=== PATIENT | female | born 1960 | race Caucasian/White ===

== ENCOUNTER → 2018-08-29 | Outpatient (CLI) | payer MEDICARE, OTHER ==
--- NOTE | 2018-08-29 18:11 | US ---
EXAMINATION TYPE: US venous doppler duplex LE RT DATE OF EXAM: 08/29/2018 5:51 PM COMPARISON: NONE CLINICAL HISTORY: R60.0 Localized edema. Right leg pain and swelling x 1 week SIDE PERFORMED: Right TECHNIQUE: The lower extremity deep venous system is examined utilizing real time linear array sonog manny with graded compression, doppler sonography and color-flow sonography. VESSELS IMAGED: External Iliac Vein (EIV) Common Femoral Vein Deep Femoral Vein Greater Saphenous Vein * Femoral Vein Popliteal Vein Small Saphenous Vein * Proximal Calf Veins (* superficial vessels) Right Leg: Appears negative for DVT IMPRESSION: No evidence of deep venous thrombosis in the right leg.
== END | disposition home or self-care (01) ==
LOC: RADUSMAIN 17:22
PROVIDERS: ATTEND Physician Assistant
DX: R60.0 Localized edema (principal)

== ENCOUNTER → 2019-04-26 | Outpatient (CLI) | payer MEDICARE, OTHER ==
--- NOTE | 2019-04-26 10:47 | CT ---
EXAMINATION TYPE: CT brain wo/w con DATE OF EXAM: 04/26/2019 COMPARISON: 11/02/1912 HISTORY: frequent falls CT DLP: 2301.00 mGycm Automated exposure control for dose reduction was used. CONTRAST: CT scan of the head is performed with IV Contrast, patient injected with 100 mL of Isovue 300. FINDINGS: There is no abnormal enhancing mass or midline shift identified. There is [id number] generalize d degenerative change involving the cerebellum. Dolichoectasia of the vertebrobasilar system noted. Findings are still suspicious for small aneurysm near the basilar tip measuring 4.5 mm No midline shift or mass effect. No enhancing masses. Sinuses are clear. No orbital flattening. Craniocervical junction is maintained on the sagittal image no acute hemorrhag e.. IMPRESSION: 1. There is diffuse cerebellar atrophy correlate clinically. No enhancing mass or midline shift. 2. 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 MRA [place] of [place] lis is recommended to exclude a small aneurysm measuring 4 mm extending from the basilar tip. Correla te with axial image 27 postcontrast images.
== END | disposition home or self-care (01) ==
LOC: RADCTMAIN 07:28
PROVIDERS: ATTEND Family Medicine
DX: G45.0 Vertebro-basilar artery syndrome (principal)
CPT/HCPCS: 70470; Q9967

== ENCOUNTER → 2019-07-23 | Outpatient (CLI) | payer MEDICARE, OTHER ==
--- NOTE | 2019-07-23 09:36 | MM ---
Reason for exam: screening (asymptomatic). Baseline mammogram. History: Patient is postmenopausal and is nulliparous. Family history of breast cancer in sister at age 45 and breast cancer in sister at age 35. Physical Findings: Nurse did not find any significant physical abnormalities on exam. MG 3D Screening Mammo W/Cad Bilateral CC and MLO view(s) were taken. Focal asymmetry left upper outer quadrant. These results were verbally communicated with the patient and result sheet given to the patient on 07/23/19. ASSESSMENT: Benign, BI-RAD 2 RECOMMENDATION: Routine screening mammogram of both breasts in 1 year.
== END | disposition home or self-care (01) ==
LOC: RADMAMWWP 07:13
PROVIDERS: ATTEND Family Medicine
DX: Z12.31 Encounter for screening mammogram for malignant neoplasm of breast (principal)
CPT/HCPCS: 77063; 77067

== ENCOUNTER 2020-09-01 09:27 | Day surgery (SDC) | payer MEDICARE, OTHER ==
[2020-08-31 08:49] VITALS: BMI 46.7
--- NOTE | 2020-09-01 08:34 | P.GSHP ---
History of Present Illness H&P Date: 09/01/20 CHIEF COMPLAINT: Colon screen HISTORY OF PRESENT ILLNESS: The patient is a 60-year-old female who presents for colon screen. Lower endoscopy was offered for further evaluation and management. PAST MEDICAL HISTORY: Please see list. PAST SURGICAL HISTORY: Please see list. MEDICATIONS: Please see list. ALLERGIES: Please see list. SOCIAL HISTORY: No illicit drug use FAMILY HISTORY: No reports of Crohn disease or ulcerative colitis. REVIEW OF ORGAN SYSTEMS: CONSTITUTIONAL: No reports of fevers or chills. PHYSICAL EXAM: VITAL SIGNS: Stable GENERAL: Well-developed pleasant in no acute distress. HEENT: No scleral icterus. Extraocular movements grossly intact. Moist buccal mucosa. NECK: Supple without lymphadenopathy. CHEST: Unlabored respirations. Equal bilateral excursions. CARDIOVASCULAR: Regular rate and rhythm. Distal 2+ pulses. ABDOMEN: Soft, nontender, nondistended. MUSCULOSKELETAL: No clubbing, cyanosis, or edema. ASSESSMENT: 1. Colon screen. PLAN: 1. Recommend proceeding with a lower endoscopy Past Medical History Past Medical History: Asthma, Heart Failure, GERD/Reflux, Hyperlipidemia, Hypertension, Seizure Disorder Additional Past Medical History / Comment(s): frequent diarrhea, seasonal allergies, last seizure in teens, mentally handicapped, signs own consents, History of Any Multi-Drug Resistant Organisms: None Reported Past Surgical History: Tubal Ligation Additional Past Surgical History / Comment(s): eye sx, colonoscopy Past Anesthesia/Blood Transfusion Reactions: Family History of Problems w/ Anesthesia Additional Past Anesthesia/Blood Transfusion Reaction / Comment(s): family hx of PONV Smoking Status: Never smoker - Past Family History Mother Family Medical History: Cancer Additional Family Medical History / Comment(s): colon ca Father Family Medical History: Cancer Additional Family Medical History / Comment(s): lung, melanoma Sister(s) Family Medical History: Cancer Additional Family Medical History / Comment(s): breast x2 sisters, colon Medications and Allergies Home Medications Medication Instructions Recorded Confirmed Type Albuterol Inhaler [Ventolin Hfa 2 puff INHALATION RT-QID PRN 08/31/20 08/31/20 History Inhaler] Cetirizine HCl [Zyrtec] 10 mg PO DAILY 08/31/20 08/31/20 History Ezetimibe [Zetia] 10 mg PO DAILY 08/31/20 08/31/20 History Furosemide [Lasix] 20 mg PO DAILY 08/31/20 08/31/20 History Levothyroxine Sodium [Tirosint] 50 mcg PO QAM 08/31/20 08/31/20 History OLANZapine [ZyPREXA] 10 mg PO HS 08/31/20 08/31/20 History Omeprazole 20 mg PO DAILY 08/31/20 08/31/20 History PHENobarbitaL [Luminal] 64.8 mg PO BID 08/31/20 08/31/20 History Phenytoin Sodium Extended 100 mg PO TID 08/31/20 08/31/20 History [Dilantin] Simvastatin 40 mg PO DAILY 08/31/20 08/31/20 History Valsartan/Hydrochlorothiazide 1 each PO QAM 08/31/20 08/31/20 History [Valsartan-Hctz 320-25 mg Tab] Allergies Allergy/AdvReac Type Severity Reaction Status Date / Time ?seizure med Allergy Unknown Uncoded 08/31/20 08:38
[~2020-09-01 09:27] MED LIST: LACTATED RINGERS 1,000 ML IV SCH; LIDOCAINE 1% (10MG/ML) FOR IV START INTRADERMA PRN
[2020-09-01] MEDS ORDERED: LACTATED RINGERS 1,000 ML IV ONE ×3 (09:45)
[2020-09-01 10:13] VITALS: TEMP 97.5
[2020-09-01] MEDS ORDERED: PROPOFOL 10 MG/ML 20 ML VIAL IV ONE (10:21)
--- NOTE | 2020-09-01 10:50 | P.PCN ---
Date of Procedure: 09/01/20 Description of Procedure: PREOPERATIVE DIAGNOSIS: Colonoscopy screening POSTOPERATIVE DIAGNOSIS: Colonoscopy screening Internal/external hemorrhoids, grade 3 Ascending colitis Transverse colon polyp OPERATION: Colonoscopy to the ileocecal valve and appendiceal orifice, cecum Colonoscopy with cold forceps biopsy SURGEON: Kim Villa MD. ANESTHESIA: MAC. INDICATIONS: The patient is an 60-year-old female who presents for first colonoscopy. Benefits and risks were described and informed consent was obtained. DESCRIPTION OF PROCEDURE: The patient had undergone MiraLAX Gatorade prep The patient had been brought into the operating room and laid in the left lateral decubitus position. After adequate intravenous sedation, the rectum was examined with 2% lidocaine jelly. External hemorrhoids were encountered. The rectal tone was within normal limits. No lesions were palpated in the rectal vault. An Olympus colonoscope was advanced until the cecum, ileocecal valve and appendiceal orifice were clearly viewed. The prep was good. Abdominal wall pressure was used to advance the scope. No sigmoid diverticulosis was encountered. Colonic polyps were found and removed. Ascending colitis at the cecum was found. Retroflexion of the scope demonstrated grade 3 internal hemorrhoids without active bleeding or inflammation. The colon was desufflated. The patient had tolerated the procedure well. Withdrawal time was over 6 minutes. FINDINGS: Aronchick preparation quality scale 2 (1-5) Internal hemorrhoids, grade 3 External hemorrhoids, grade 3. No arteriovenous malformations. No sigmoid diverticulosis Redundant sigmoid colon requiring abdominal pressure Removal of 1 polyp: - Cold forceps biopsy at mid transverse colon, 4 mm polyp. Ascending colitis of the cecum RECOMMENDATIONS: Given severity of tubular adenomas, recommend repeat colonoscopy 1 year. Plan - Discharge Summary Discharge Rx Participant: No New Discharge Prescriptions: Continue Levothyroxine Sodium [Tirosint] 50 mcg PO QAM Cetirizine HCl [Zyrtec] 10 mg PO DAILY Albuterol Inhaler [Ventolin Hfa Inhaler] 2 puff INHALATION RT-QID PRN PRN Reason: Shortness Of Breath OLANZapine [ZyPREXA] 10 mg PO HS Ezetimibe [Zetia] 10 mg PO DAILY Phenytoin Sodium Extended [Dilantin] 100 mg PO TID PHENobarbitaL [Luminal] 64.8 mg PO BID Valsartan/Hydrochlorothiazide [Valsartan-Hctz 320-25 mg Tab] 1 each PO QAM Simvastatin 40 mg PO DAILY Omeprazole 20 mg PO DAILY Furosemide [Lasix] 20 mg PO DAILY Discharge Medication List Albuterol Inhaler [Ventolin Hfa Inhaler] 2 puff INHALATION RT-QID PRN 08/31/20 [History] Cetirizine HCl [Zyrtec] 10 mg PO DAILY 08/31/20 [History] Ezetimibe [Zetia] 10 mg PO DAILY 08/31/20 [History] Furosemide [Lasix] 20 mg PO DAILY 08/31/20 [History] Levothyroxine Sodium [Tirosint] 50 mcg PO QAM 08/31/20 [History] OLANZapine [ZyPREXA] 10 mg PO HS 08/31/20 [History] Omeprazole 20 mg PO DAILY 08/31/20 [History] PHENobarbitaL [Luminal] 64.8 mg PO BID 08/31/20 [History] Phenytoin Sodium Extended [Dilantin] 100 mg PO TID 08/31/20 [History] Simvastatin 40 mg PO DAILY 08/31/20 [History] Valsartan/Hydrochlorothiazide [Valsartan-Hctz 320-25 mg Tab] 1 each PO QAM 08/31 [History] Follow up Appointment(s)/Referral(s): Kim Villa MD [STAFF PHYSICIAN] - As Needed Patient Instructions/Handouts: Ulcerative Colitis (DC), Hemorrhoids (DC) Activity/Diet/Wound Care/Special Instructions: Repeat colonoscopy 5 years, 2025 Discharge Disposition: HOME SELF-CARE
[2020-09-01 10:55] VITALS: RESP 18
[2020-09-01 11:24] VITALS: BP 109/67; PULSE 77
== END 2020-09-01 11:47 | disposition home or self-care (01) ==
LOC: ORWHC2ENDO 09:27
PROVIDERS: ATTEND Surgery Plastic and Reconstructive Surgery
DX: Z12.11 Encounter for screening for malignant neoplasm of colon (principal); D12.3 Benign neoplasm of transverse colon; Z80.0 Family history of malignant neoplasm of digestive organs; K64.2 Third degree hemorrhoids; K64.4 Residual hemorrhoidal skin tags; K52.9 Noninfective gastroenteritis and colitis, unspecified; J45.909 Unspecified asthma, uncomplicated; I11.0 Hypertensive heart disease with heart failure; I50.9 Heart failure, unspecified; G40.909 Epilepsy, unspecified, not intractable, without status epilepticus; Z79.890 Hormone replacement therapy; Z79.899 Other long term (current) drug therapy; Z80.1 Family history of malignant neoplasm of trachea, bronchus and lung; Z80.8 Family history of malignant neoplasm of other organs or systems; Z80.3 Family history of malignant neoplasm of breast; Z98.51 Tubal ligation status; Z88.8 Allergy status to other drugs, medicaments and biological substances; E78.5 Hyperlipidemia, unspecified; K21.9 Gastro-esophageal reflux disease without esophagitis
CPT/HCPCS: 88305; 45380; J2704